=== PATIENT | male | born 1960 | race Caucasian/White ===

== ENCOUNTER 2025-03-27 08:43 | Day surgery (SDC) | payer SELFPAY ==
[~2025-03-27 08:43] MED LIST: Midazolam 1 MG/ML 2 ML SDV ONE; Propofol 200 MG/20 ML SDV ONE; fentaNYL 50 MCG/ML SDV ONE
[2025-03-27] MEDS ORDERED: Lactated Ringers 1,000 ML IV SCH (09:30)
[2025-03-27] MEDS: Lactated Ringers 1,000 ML IV SCH (09:31)
[2025-03-27] MEDS ORDERED: Propofol 200 MG/20 ML SDV ONE (10:19)
== END 2025-03-27 11:55 | disposition home or self-care (01) ==
LOC: JP.SDS 08:43
PROVIDERS: ATTEND Surgery
DX: D12.5 Benign neoplasm of sigmoid colon (principal); D12.3 Benign neoplasm of transverse colon; K63.5 Polyp of colon; D12.8 Benign neoplasm of rectum; K92.2 Gastrointestinal hemorrhage, unspecified
CPT/HCPCS: 00811; 45380; 45385; J2250; J2704; J3010; J7120; 88305